=== PATIENT | female | born 1985 | race Caucasian/White ===

== ENCOUNTER → 2016-11-18 | Outpatient (REF) | payer OTHER | LOC: M SFHCWAGY 10:52 | PROVIDERS: ATTEND Nurse Practitioner Women's Health | DX: Z12.4 Encounter for screening for malignant neoplasm of cervix (principal) ==

== ENCOUNTER → 2018-07-28 | Outpatient (REF) | payer OTHER | LOC: M SFHCWAGY 15:53 | PROVIDERS: ATTEND Nurse Practitioner Women's Health | DX: Z12.4 Encounter for screening for malignant neoplasm of cervix (principal); N93.0 Postcoital and contact bleeding; B37.3 Candidiasis of vulva and vagina ==

== ENCOUNTER → 2018-11-25 | Outpatient (CLI) | payer OTHER ==
--- NOTE | 2018-11-25 15:42 | REPMRS ---
Patient History The patient states she had a clinical breast exam in 07/2018. Family history of breast cancer at age 52 in mother. No Hormone Replacement Therapy Digital Woman Screen Mammo: November 25, 2018 - Exam #: [id number] Bilateral CC and MLO view(s) were taken. Technologist: Maricarmen Ash, Technologist FINDINGS: The breast tissue is heterogeneously dense. This may lower the sensitivity of mammography. There is no evidence of dominant mass, architectural distortion, or grouped microcalcification typical of malignancy. 3-D tomosynthesis shows no additional findings. Assessment: BI-RADS/ACR category 1 mammogram. Negative Mammogram. Recommendation Routine screening mammogram of both breasts in 1 year (for women over age 40). This patient's Lifetime Breast Cancer RIsk is estimated at 19.9 %.Annual screening Breast MRI scanniing is recommended for patient's whose lifetime risk assessment is over 20%. This mammogram was interpreted with the aid of an FDA-approved computer-aided dectection system. Electronically Signed By: Philip Han MD 11/25/18 [id number]
== END ==
LOC: M WHC 14:28
PROVIDERS: ATTEND Nurse Practitioner Women's Health
DX: Z12.31 Encounter for screening mammogram for malignant neoplasm of breast (principal); Z80.3 Family history of malignant neoplasm of breast

== ENCOUNTER → 2020-05-29 | Outpatient (REF) | payer OTHER | LOC: M SFHCWAGY 17:00 | PROVIDERS: ATTEND Nurse Practitioner Women's Health | DX: Z12.4 Encounter for screening for malignant neoplasm of cervix (principal) | CPT/HCPCS: 87624; G0123 ==

== ENCOUNTER → 2022-05-31 | Outpatient (CLI) | payer OTHER | LOC: M WHC 07:56 | PROVIDERS: ATTEND Nurse Practitioner Family | DX: Z12.31 Encounter for screening mammogram for malignant neoplasm of breast (principal) ==

== ENCOUNTER → 2022-05-31 | Outpatient (REF) | payer OTHER | LOC: M PLALAB 09:23 | PROVIDERS: ATTEND Nurse Practitioner Family | DX: Z12.4 Encounter for screening for malignant neoplasm of cervix (principal) | CPT/HCPCS: 87624; G0123 ==

== ENCOUNTER → 2023-08-27 | Outpatient (CLI) | payer OTHER | LOC: M WHC 08:13 | PROVIDERS: ATTEND Nurse Practitioner Family | DX: R10.2 Pelvic and perineal pain (principal); N92.6 Irregular menstruation, unspecified; Z97.5 Presence of (intrauterine) contraceptive device; N83.292 Other ovarian cyst, left side ==

== ENCOUNTER → 2023-11-11 | Outpatient (REF) | payer OTHER | LOC: M SFHCWAGY 17:40 | PROVIDERS: ATTEND Obstetrics & Gynecology | DX: N93.9 Abnormal uterine and vaginal bleeding, unspecified (principal) ==

== ENCOUNTER 2024-03-17 09:03 | Day surgery (SDC) | payer OTHER ==
[2024-03-17] VITALS (8 sets, daily range): BP systolic 97–138; BP diastolic 52–82; TEMP 97–98.2; O2SAT 95–98
[~2024-03-17] VITALS: Ht 162.6 cm; Wt 93.4 kg
[~2024-03-17 09:03] MED LIST: ACETAMINOPHEN 1000MG 100ML IV BAG As Ordered ONE; ALBU8.5H; BUPR150T12 PO; KETAMINE HCL 200MG/20ML VIAL As Ordered ONE; KETOROLAC 60MG 2ML VIAL As Ordered ONE; LEVOTAB10 PO; LEXA1TAB2 PO; LIDOCAINE 2% 100MG/5ML SDV (FOR ANES.) As Ordered ONE; METF10004 PO; MIDAZOLAM INJ 2MG/2ML VIAL As Ordered ONE; MONT10TA97 PO; OMEP40CA4 PO; ONDANSETRON 4MG 2ML VIAL As Ordered ONE; ROCURONIUM BROMIDE 50MG/5ML VIAL As Ordered ONE; SUGAMMADEX SODIUM 500 MG/5 ML VIAL (BRIDION) As Ordered ONE; fentaNYL 100 MCG/2 ML INJECTION As Ordered ONE; propofoL 200 MG/20 ML VIAL As Ordered ONE
[2024-03-17] MEDS ORDERED: LR 1,000 ML IV SCH ×2 (09:10→12:35)
[2024-03-17 10:00] LABS: MEAN CORPUSCULAR HEMOGLOBIN 31.5 pg (27.0-33.0); MEAN CORPUSCULAR HGB CONC 34.9 g/dl (32.0-36.5); MEAN CORPUSCULAR VOLUME 90.3 fl (80.0-96.0); PLATELET COUNT, AUTOMATED 211 10^3/uL (150-450); RED BLOOD COUNT 4.76 10^6/uL (4.00-5.40); WHITE BLOOD COUNT 4.4 10^3/uL (4.0-10.0)
[2024-03-17] MEDS: SCOPOLAMINE 1MG TRANSDERMAL PATCH TOP ONE (10:05)
[2024-03-17] MEDS: METHYLENE BLUE 0.5% (5MG/ML) 10 ML AMP (PROVAYBLUE) As Ordered ONE (10:29)
[2024-03-17] MEDS: ceFAZolin SOD 2 GM in IV 1 EA IV ONE (10:29)
[2024-03-17] MEDS ORDERED: HYDROmorphone HCL 2MG/ML 1ML VIAL As Ordered ONE (12:01)
[2024-03-17] MEDS ORDERED: PERCOCET 5MG/325MG TAB PO PRN (12:10)
[2024-03-17] MEDS ORDERED: MORPHINE 4 MG/ML 1ML VIAL IV PRN (12:10)
[2024-03-17] MEDS ORDERED: ONDANSETRON 4MG 2ML VIAL IV PRN (12:10)
[2024-03-17] MEDS ORDERED: COLA100C5 PO (12:17)
[2024-03-17] MEDS ORDERED: IBUP80TA PO (12:17)
[2024-03-17] MEDS ORDERED: PERCOCET PO (12:17)
[2024-03-17] MEDS ORDERED: oxyCODONE 5MG TAB PO PRN (12:35)
[2024-03-17] MEDS ORDERED: HYDROMORPHONE HCL 0.5 MG/ 0.5 ML SYRINGE IV PRN (12:35)
[2024-03-17] MEDS ORDERED: fentaNYL 100 MCG/2 ML INJECTION IV PRN (12:35)
[2024-03-17] MEDS: ONDANSETRON 4MG 2ML VIAL IV PRN (12:47)
[2024-03-17] MEDS ORDERED: diphenhydrAMINE 50MG/ML VIAL As Ordered ONE (13:06)
[2024-03-17] MEDS: diphenhydrAMINE 50MG/ML VIAL IV PRN (13:10)
[2024-03-17] MEDS: KETOROLAC 30 MG/ML 1ML VIAL IV SCH (14:00)
[2024-03-17] MEDS: LR 1,000 ML IV SCH (14:45)
[2024-03-17] MEDS: PERCOCET 5MG/325MG TAB PO PRN (16:16)
[2024-03-17] MEDS: DOCUSATE SODIUM 100MG CAPSULE PO SCH (20:32)
[2024-03-18 02:00] VITALS: BP 111/65; TEMP 97.7; O2SAT 98
[2024-03-18 05:53] VITALS: BP 104/71; TEMP 97; O2SAT 97
[2024-03-18] MEDS ORDERED: IBUPROFEN 800 MG TAB PO SCH (16:00)
== END 2024-03-18 14:00 | disposition home or self-care (01) ==
LOC: M SDC 09:03 → M OBS 14:20 → M SDC 03-18 14:00
PROVIDERS: ATTEND Obstetrics & Gynecology
DX: N93.9 Abnormal uterine and vaginal bleeding, unspecified (principal); K21.9 Gastro-esophageal reflux disease without esophagitis; F41.9 Anxiety disorder, unspecified; J45.909 Unspecified asthma, uncomplicated; Z79.51 Long term (current) use of inhaled steroids; Z79.899 Other long term (current) drug therapy
CPT/HCPCS: 36415; 58571; 81025; 85027; 86850; 86900; 86901; 88307; 96361; 96374; 96376; J0131; J0665; J0690; J1100; J1171; J1200; J1885; J2250; J2405; J3010; Q9968; S2900